=== PATIENT | female | born 1950 ===

== ENCOUNTER 2016-12-10 07:41 | Observation (INO) | payer OTHER ==
[2016-12-10] VITALS (15 sets, daily range): BP systolic 112–170; BP diastolic 58–98
[~2016-12-10] VITALS: Ht 160 cm; Wt 117.0 kg
[~2016-12-10 07:41] MED LIST: Dexamethasone 20mg/5ml IVP ONE; ceFAZolin sod 1 GM in NS 55 ML IVPB ONE
[2016-12-10] MEDS ORDERED: NORVASC5 MG ORAL (08:44)
[2016-12-10] MEDS ORDERED: Chloraseptic Spray 20mL Bottle ORAL PRN (08:45)
[2016-12-10] MEDS ORDERED: traMADol 50mg tab ORAL PRN (08:45)
[2016-12-10] MEDS ORDERED: HYDROmorphone 1mg/ml Carpuject IVP PRN (08:45)
[2016-12-10] MEDS ORDERED: Albuterol ud Inhalation HHN ONE (09:30)
[2016-12-10] MEDS ORDERED: Vancomycin 1gm inj IVPB ONE ×2 (09:44→12:01)
--- NOTE | 2016-12-10 09:54 | Pre-Procedure Note/Attestation ---
Pre-Procedure Note/Attestation Complete Prior to Procedure Planned Procedure: not applicable Procedure Narrative: Microdiscectomy L3-4, L4-5 Indications for Procedure Pre-Operative Diagnosis: Post trauma HNP L3.4, L4-5. Attestation I attest that I discussed the nature of the procedure; its benefits; risks and complications; and alternatives (and the risks and benefits of such alternatives ), prior to the procedure, with the patient (or the patient's legal union representative). I attest that, if there was a reasonable possibility of needing a blood transfusion, the patient (or the patient's legal union representative) was given the [facility] standardized written summary, pursuant to the [place] Blood Safety Act ([place] Health and Safety Code # 1645, as amended). I attest that I re-evaluated the patient just prior to the surgery and that there has been no change in the patient's H&P, except as documented below: MARY AVELAR Dec 10, 2016 09:54
[2016-12-10] MEDS ORDERED: Lidocaine 1% MPF 10mg/ml 5ml ONE (10:00)
[2016-12-10] MEDS ORDERED: LR 1000ml ONE (10:00)
[2016-12-10] MEDS ORDERED: Dexamethasone 4mg/ml vial ONE (10:00)
[2016-12-10] MEDS ORDERED: Sterile Water Irrig 1000ml IRRIG ONE (10:00)
[2016-12-10] MEDS ORDERED: Nimbex 2mg/ml Inj 10ML IVP ONE (10:00)
[2016-12-10] MEDS ORDERED: Labetalol 5mg/ml 20ml vial IV ONE (10:00)
[2016-12-10] MEDS ORDERED: Propofol 10mg/ml 100ml btl IV ONE (10:00)
[2016-12-10] MEDS ORDERED: Midazolam 2mg/2ml Inj ONE (10:00)
[2016-12-10] MEDS ORDERED: Lidocaine 1% Plain 30 ml INJ ONE (10:00)
[2016-12-10] MEDS ORDERED: NS Irrig 1000ml ONE (10:00)
[2016-12-10] MEDS ORDERED: LR 1000ml 1,000 ML IVLG SCH (10:55)
--- NOTE | 2016-12-10 10:55 | Anethesia Preoperative Eval ---
Anesthesia Pre-op PMH/ROS General Date of Evaluation: Dec 10, 2016 Time of Evaluation: 10:01 Anesthesiologist: Alesha ASA Score: ASA 3 Mallampati Score Class I : Soft palate, uvula, fauces, pillars visible Class II: Soft palate, uvula, fauces visible Class III: Soft palate, base of uvula visible Class IV: Only hard plate visible Mallampati Classification: Class III Surgeon: Rosa Isela Diagnosis: Back Pain Surgical Procedure: L3-4, L4-5 Microdiscetomy Anesthesia History: none Family History: no anesthesia problems Allergies: Coded Allergies: No Known Allergies (Unverified , 12/09/16) Medications: see eMAR Past Medical History Cardiovascular: Reports: HTN Pulmonary: Reports: other - Pneumonia Other: obesity - BMI 46 PSxH Narrative: C/S X2 Anesthesia Pre-op Phys. Exam Physician Exam Last Vital Signs Date Time Temp Pulse Resp B/P Pulse Ox O2 Delivery O2 Flow Rate FiO2 12/10/16 09:17 78 18 99 Room Air 12/10/16 08:46 150/86 12/10/16 08:23 98.6 Constitutional: NAD Neurologic: CN 2-12 intact Cardiovascular: RRR Respiratory: CTA Gastrointestinal: S/NT/ND Airway Exam Mallampati Score: Class III MO: limited ROM: limited Teeth: missing Dentures: upper Anesthesia Pre-op A/P Risk Assessment & Plan Assessment: ASA 3 Plan: GA, BIS, Glidescope Status Change Before Surgery: No Pre-Antibiotics Dru Grams Ancef IV Given Within 1 Hr of Incision: Yes Time Given: 10:21 Shan Eduardo MD Dec 10, 2016 10:55
[2016-12-10] MEDS: Thrombin 5000 units TOPIC ONE ×2 (10:56→11:34)
[2016-12-10] MEDS: Bacitracin 50000 Units Vial ONE ×2 (10:56→11:33)
[2016-12-10] MEDS ORDERED: Oxycodone/Acetaminophen 5-325 ORAL PRN (11:00)
[2016-12-10] MEDS ORDERED: Norco 5mg/325mg tab ORAL PRN (11:00)
[2016-12-10] MEDS ORDERED: Meperidine 25mg/0.5ml Inj IV PRN (11:00)
[2016-12-10] MEDS ORDERED: Metoclopramide 10mg/2ml Inj IVP PRN (11:00)
[2016-12-10] MEDS ORDERED: Ketorolac 60mg Inj IV PRN (11:00)
[2016-12-10] MEDS ORDERED: Atropine Inj 1mg/10ml Syr IV PRN (11:00)
[2016-12-10] MEDS ORDERED: Ketorolac 30mg Inj IV PRN (11:00)
[2016-12-10] MEDS ORDERED: Hydromorphone 0.5mg/0.5ml inj IVP PRN (11:00)
[2016-12-10] MEDS ORDERED: LORazepam Inj 2mg/ml 1ml IV PRN (11:00)
[2016-12-10] MEDS ORDERED: DiphenhydrAMINE 50mg/ml Inj IVP PRN (11:00)
[2016-12-10] MEDS ORDERED: Midazolam 2mg/2ml Inj IVP PRN (11:00)
[2016-12-10] MEDS ORDERED: Norco 7.5mg/325mg tab ORAL PRN (11:00)
[2016-12-10] MEDS ORDERED: fentaNYL 100 mcg/2 mL IV PRN (11:00)
--- NOTE | 2016-12-10 11:20 | Immediate Post-Op Evaluation ---
Immediate Post-Op Evalulation Immediate Post-Op Evalulation Procedure: L3-4, L4-5 Microdiscetomy Date of Evaluation: Dec 10, 2016 Time of Evaluation: 13:19 IV Fluids: 1000 LR Blood Products: 0 Estimated Blood Loss: 50 Urinary Output: 0 Blood Pressure Systolic: 170 Blood Pressure Diastolic: 98 Pulse Rate: 74 Respiratory Rate: 16 O2 Sat by Pulse Oximetry: 100 Temperature (Fahrenheit): 97.4 Pain Score (1-10): 3 Nausea: No Vomiting: No Complications 0 Patient Status: awake, reacts, patent, extubated, none Hydration Status: adequate Dru Grams Ancef IV Given Within 1 Hr of Incision: Yes Time Given: 10:21 Shan Eduardo MD Dec 10, 2016 11:20
[2016-12-10] MEDS: Lidocaine 1% 10mg/ml/Epi 0.005mg/ml 30ml vial INJ ONE ×2 (11:34→12:00)
--- NOTE | 2016-12-10 12:45 | Brief Operative Note ---
Immediate Post Operative Note Operative Note Pre-op Diagnosis: Post trauma HNP L3.4, L4-5. Procedure: Microdiscectomy L3-4, L4-5 Body Habitus Local Xray SSEP Microscope Post-op Diagnosis: same as pre-op Findings: consistent w/pre-op dx studies Surgeon: Rosa Isela GUIDRY Director Of Clinical Trials: Pako GALO Anesthesiologist: Alesha GUIDRY Anesthesia: general Specimen: none Complications: none Condition: stable Estimated Blood Loss: minimal Drains: none Implant(s) used?: No MARY AVELAR Dec 10, 2016 12:45
[2016-12-10] MEDS ORDERED: Acetaminophen (Non formulary) 100 ML IV ONE (13:00)
--- NOTE | 2016-12-10 14:12 | Diagnostic Imaging Report ---
Indication: Back pain Technique: Digital intraoperative imaging Comparison: None Findings: Digital intraoperative imaging demonstrates surgical tools posterior to the L4-5 and L5-S1 disc, with a retractor posterior to L5. Impression: Intraoperative imaging, as described
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
[2016-12-10] MEDS: Docusate 100mg/10ml Liq NG SCH ×2 (17:56→18:25)
[2016-12-10] MEDS: Norco 10mg/325mg tab ORAL PRN ×2 (18:25→21:31)
[2016-12-10] MEDS ORDERED: ceFAZolin sod 1 GM in D5W 55 ML IV SCH (18:30)
[2016-12-10] MEDS ORDERED: DuoNeb 0.5-3(2.5)mg/3ml neb HHN SCH (19:00)
--- NOTE | 2016-12-10 19:39 | Cardiology Progress Note ---
Assessment/Plan Assessment/Plan [id number] Objective Last 24 Hour Vital Signs Date Time Temp Pulse Resp B/P Pulse Ox O2 Delivery O2 Flow Rate FiO2 12/10/16 17:00 97.7 79 20 135/70 99 Nasal Cannula 2.0 12/10/16 15:00 98.1 67 20 117/65 96 Nasal Cannula 2.0 12/10/16 14:25 97.4 62 22 138/66 98 Nasal Cannula 3.0 12/10/16 14:10 60 23 131/64 97 Nasal Cannula 3.0 12/10/16 14:00 98.2 63 20 112/64 96 Nasal Cannula 2.0 12/10/16 14:00 66 21 140/71 96 Nasal Cannula 3.0 12/10/16 13:50 63 22 146/69 95 Simple Mask 6.0 12/10/16 13:40 59 20 155/73 96 Simple Mask 6.0 12/10/16 13:30 70 20 163/88 97 Simple Mask 6.0 12/10/16 13:20 63 16 151/87 96 Simple Mask 6.0 12/10/16 13:15 70 13 163/95 98 Simple Mask 6.0 12/10/16 13:09 74 16 100 12/10/16 13:08 97.4 74 14 170/98 95 Simple Mask 6.0 12/10/16 09:17 78 18 99 Room Air 12/10/16 09:07 76 18 Room Air 12/10/16 09:05 76 18 97 Room Air 12/10/16 08:46 76 18 150/86 96 Room Air 12/10/16 08:23 98.6 79 18 170/94 94 Room Air JACE PACHECO Dec 10, 2016 19:39
[2016-12-10] MEDS ORDERED: Tubing IV Secondary IV ONE (23:03)
--- NOTE | 2016-12-10 23:45 | Operative Note - Dictated ---
FACILITY: SURGEON: Tl Natarajan Ph.D. M.D. PATHOLOGY SECRETARY: CLOVER Henriquez. ANESTHESIOLOGIST: Dr. Eduardo ANESTHESIA: General with intubation. ADMITTING/PREOPERATIVE DIAGNOSES: Posttraumatic lumbar herniated nucleus polyposis, pain, and radiculopathy L3-4, L4-5. POSTOPERATIVE DIAGNOSES: Posttraumatic lumbar herniated nucleus polyposis, pain, and radiculopathy L3-4, L4-5. OPERATIVE PROCEDURE: 1. Microdiskectomy, left L3-4, L4-5. 2. Nerve root decompression. 3. SSEP monitoring. 4. High-powered microscopic dissection. 5. Intraoperative x-rays interpreted by surgeon. 6. Local anesthetic applied by surgeon. 7. The patient's body habitus greater than 95th percentile for height. PROCEDURE: The patient was brought to the operating room and in the supine position, general anesthesia with intubation was induced. Intravenous antibiotics, intravenous Decadron were administered 30 minutes prior to incision time. The patient was carefully turned and positioned to the prone position. Lumbodorsal spine was sterilely prepped. Spinal needle was placed percutaneously under sterile conditions, midline into the subcutaneous tissue of lumbar spine. A cross-table fluoroscopic image was obtained under sterile conditions, interpreted by surgeons for determination of incision placement. Needle was removed. Back was sterilely prepped and draped free in the usual sterile fashion. A longitudinal midline incision sharply placed in dermis and epidermis over the involved intervals. Electrocautery dissection was carried through extensive subcutaneous tissue, greater than 6 inches of subcutaneous tissue. Lumbodorsal fascia was incised left of midline over the respective intervals with identification and isolation of the lamina pars articularis. Confirmation of position was obtained with fluoroscopic imaging under sterile conditions, markers in place. Position of markers recorded. Marker was removed. Retractors placed. L4-L5: Hemilaminotomy performed, L4-L5. Ligamentum flavum excised. Dissection carried lateral to the dural tube to the disc space. Herniated disk noted. Annulotomy followed microdiscectomy not exceeding 12 millimeters posteroanterior, medial lateral, and lateral medial. No bleeding from the disc space. The space was irrigated with antibiotic-containing saline. No further fragments identified. Lateral gutter release. No evidence of cerebrospinal fluid leakage at any time. Bipolar electrocauterization utilized for minimal epidural bleeding. FloSeal applied. Attention turned to the L3-L4 interval where the retractors were placed. Hemilaminotomy inferior L3, superior L4, left only. Ligament flavum excision. Of note is that at both the L3-4 and L4-L5 intervals ligamentum flavum was hypertrophied. Lumbodorsal spine was sterilely prepped. Spinal needle placed percutaneously under sterile conditions in subcutaneous tissue. Cross-table imaging obtained demonstrating a correct level for the dissection. Needle removed. Back was sterilely prepped and draped free in usual sterile fashion. A longitudinal midline incision over respective intervals was placed sharply through dermis and epidermis. Electrocautery dissection was carried through extensive subcutaneous tissue greater than 6 inches in depth. A longitudinal midline incision over the respective intervals is sharply placed in the dermis and epidermis. Subcutaneous tissue dissection with electrocautery. Of note is that the subcutaneous tissue was 6 inches in depth. Lumbodorsal fascia was incised left of midline. Subperiosteal dissection with respective lamina with identification of the pars interarticularis. Retractors placed. Marker was placed. Cross-table imaging obtained demonstrating the correct levels for the dissection. Position of the markers was recorded, followed with marker removal. Under high-power magnification, hemilaminotomy left L4-L5 was performed. Dissection ligamentum flavum. Disc space identified. Large subligamentous herniated nucleus pulposus identified. Annulotomy followed with microdiscectomy to 12 millimeters maximum depth. The space irrigated with antibiotic-containing saline. Bipolar electrocauterization utilized for minimal epidural bleeding. The patient remained stable at all times. SSEP monitoring remained normal. No further compression noted between the dura and the posterior anulus with gentle probing. HemoSeal applied. Attention was turned to the L3-L4 interval where hemilaminotomy under high-power magnification was performed inferior 3, superior L4, left only. Dissection carried lateral to the dural tube/exiting nerve root with identification of a subligamentous herniated nucleus polyposis. Annulus incised. Microdiscectomy, maximum posterior anterior dimensions 12 millimeters. No dural tears or leaks noted anytime during the procedure. No bleeding from the disc space. This space irrigated with antibiotic-containing saline. No further fragments identified. Wound irrigated with antibiotic-containing saline. HemoSeal applied at the L3-L4 and L4-L5 intervals. Sequential reapproximation of the lumbodorsal fascia, 2 grams vancomycin powder applied in subcutaneous tissue. Subcutaneous tissue reapproximated in multiple layers. Dermis and epidermis further reapproximated with staple sutures. Local anesthetic 20 cubic centimeters of 1% lidocaine with epinephrine injected in the subcutaneous tissue, lateral aspects of the incision. Sterile bands applied and maintained in place with tape. The patient carefully turned from the prone to the supine position on the transport bed where she was awakened, extubated in operating room, and transported to postop recovery in good stable condition. Tl Natarajan M.D. DR: MELISSA JOB#: [id number] CC:
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
[2016-12-11] MEDS ORDERED: DuoNeb 0.5-3(2.5)mg/3ml neb HHN PRN (08:00)
--- NOTE | 2016-12-11 11:37 | 48 Hour Post Anesthesia Eval ---
Post Anesthesia Evaluation Procedure: L3-4, L4-5 Microdiscetomy Date of Evaluation: Dec 10, 2016 Time of Evaluation: 20:11 Blood Pressure Systolic: 136 0: 58 Pulse Rate: 68 Respiratory Rate: 18 Temperature (Fahrenheit): 98.2 Airway: patent Nausea: No Vomiting: No Pain Intensity: 3 Hydration Status: adequate Cardiopulmonary Status: Stable Mental Status/LOC: patient returned to baseline Follow-up Care/Observations: 0 Post-Anesthesia Complications: 0 Follow-up care needed: ready to discharge Shan Eduardo MD Dec 11, 2016 11:37
[2016-12-11 11:40] VITALS: BP 136/58
== END 2016-12-10 23:04 | disposition home or self-care (01) ==
LOC: SUR 07:41 → 3E 15:43
DX: M51.16 Intervertebral disc disorders with radiculopathy, lumbar region (principal); G89.18 Other acute postprocedural pain; E66.01 Morbid (severe) obesity due to excess calories; Z68.42 Body mass index [BMI] 45.0-49.9, adult; I50.30 Unspecified diastolic (congestive) heart failure; I51.7 Cardiomegaly; R03.0 Elevated blood-pressure reading, without diagnosis of hypertension; Z87.01 Personal history of pneumonia (recurrent)
CPT/HCPCS: 36415; 63030; 63035; 72020; 76001; 86850; 86900; 86901; 94640; 94664; J0690; J1100; J2001; J2250; J2405; J2704; J3370; J7120; 94003; 94150; G0378